=== PATIENT | male | born 1990 | race Two or more races ===

== ENCOUNTER 2019-01-05 12:46 | Emergency (ER) | payer SELFPAY ==
[~2019-01-05] VITALS: Ht 175.3 cm; Wt 182.0 kg
[2019-01-05 12:53] VITALS: BP 153/79
== END 2019-01-05 14:53 | disposition home or self-care (01) ==
LOC: ED 14:43
DX: J15.9 Unspecified bacterial pneumonia (principal); F17.200 Nicotine dependence, unspecified, uncomplicated; J45.909 Unspecified asthma, uncomplicated
CPT/HCPCS: 71046; 87081; 87147; 87880; 93005; 99284